=== PATIENT | female | born 1985 | race Caucasian/White ===

== ENCOUNTER → 2018-02-09 | Day surgery (SDC) | payer OTHER | END | disposition home or self-care (01) | LOC: ADM 02-06 07:00 → CIR.AMB 07:00 | DX: N73.6 Female pelvic peritoneal adhesions (postinfective) (principal) ==

== ENCOUNTER 2018-02-26 15:43 | Emergency (ER) | payer OTHER ==
[~2018-02-26] VITALS: Ht 157.5 cm; Wt 92.1 kg
[2018-02-26] MEDS ORDERED: PROTONIX40 MG (15:56)
[2018-02-26] MEDS ORDERED: ULTRACET (15:56)
== END 2018-02-26 19:42 | disposition home or self-care (01) ==
LOC: ER 15:43
DX: M94.0 Chondrocostal junction syndrome [Tietze] (principal); R31.29 Other microscopic hematuria